=== PATIENT | male | born 1995 | race Caucasian/White ===

== ENCOUNTER 2018-01-30 13:48 | Emergency (ER) | payer OTHER ==
[2018-01-30] MEDS ORDERED: LIDOCAINE 1% MPF 5 ML VIAL ONE (16:10)
--- NOTE | 2018-01-30 16:32 | ER ---
Nurse's Notes [facility] Name: Sandra White Age: 22 yrs Sex: Male : 1995 Arrival Date: 01/30/2018 Time: 13:53 Bed 11 Private MD: Diagnosis: Laceration without foreign body of left thumb without damage to nail Presentation: 01/30 15:20 Presenting complaint: Patient states: cut left thumb with serrated kitchen knife. iw Transition of care: patient was not received from another setting of care. Onset of symptoms was January 30, 2018. Risk Assessment: Do you want to hurt yourself or someone else? Patient reports no desire to harm self or others. Initial Sepsis Screen: Does the patient meet any 2 criteria? No. Patient's initial sepsis screen is negative. Does the patient have a suspected source of infection? No. Patient's initial sepsis screen is negative. Care prior to arrival: None. 15:20 Method Of Arrival: Ambulatory iw 15:20 Acuity: TOOTIE 4 iw Historical: - Allergies: 15:35 Iodine; iw - Immunization history:: Last tetanus immunization: up to date. - Ebola Screening: : Patient negative for fever greater than or equal to 101.5 degrees Fahrenheit, and additional compatible Ebola Virus Disease symptoms Patient denies exposure to infectious person Patient denies travel to an Ebola-affected area in the 21 days before illness onset No symptoms or risks identified at this time. Vital Signs: 15:34 Pulse 63; Resp 16; Temp 98.2; Pulse Ox 98% on R/A; Weight 74.84 kg; Height 5 ft. 10 in. iw (177.80 cm); Pain 3/10; 15:34 Body Mass Index 23.67 (74.84 kg, 177.80 cm) iw ED Course: 13:53 Patient arrived in ED. rg4 14:52 Melina Cook, RN is Primary Nurse. iw 15:03 Jermain Mohan PA is PHCP. cp 15:03 Rafael Sinha MD is Attending Physician. cp 15:34 Triage completed. iw 16:42 Hand Left 2 View XRAY In Process Unspecified. EDMS Administered Medications: No medications were administered Outcome: 16:32 Discharge ordered by MD. cp 16:45 Patient left the ED. iw Signatures: Dispatcher [employer] EDMS Melina Cook, RN RN iw Jermain Mohan PA PA cp Garcia, Pretty rg4
--- NOTE | 2018-01-30 16:33 | EDPHYS ---
Physician Documentation [facility] Name: Sandra White Age: 22 yrs Sex: Male : 1995 Arrival Date: 01/30/2018 Time: 13:53 Bed 11 Private MD: ED Physician Rafael Sinha HPI: 01/30 15:45 This 22 yrs old Male presents to ER via Ambulatory with complaints of cp Laceration To Finger. 15:45 The patient or guardian reports a laceration, clean. cp 15:45 The complaints affect the distal phalanx of left thumb. Context: The problem was cp sustained at home, resulted from cutting potato . Onset: The symptoms/episode began/occurred just prior to arrival. Historical: - Allergies: 15:35 Iodine; iw - Immunization history:: Last tetanus immunization: up to date. - Ebola Screening: : Patient negative for fever greater than or equal to 101.5 degrees Fahrenheit, and additional compatible Ebola Virus Disease symptoms Patient denies exposure to infectious person Patient denies travel to an Ebola-affected area in the 21 days before illness onset No symptoms or risks identified at this time. ROS: 15:50 Constitutional: Negative for body aches, chills, fever, poor PO intake. cp 15:50 Eyes: Negative for injury, pain, redness, and discharge. cp 15:50 Cardiovascular: Negative for chest pain. 15:50 Respiratory: Negative for cough, wheezing. 15:50 Abdomen/GI: Negative for abdominal pain, vomiting, diarrhea, constipation. 15:50 Skin: Positive for laceration(s), of the distal phalanx of left thumb, Negative for avulsion. 15:50 Neuro: Negative for numbness. 15:50 All other systems are negative. Exam: 15:54 Constitutional: The patient appears in no acute distress, alert, awake, well developed, cp well nourished. 15:54 Head/Face: Normocephalic, atraumatic. cp 15:54 Eyes: Periorbital structures: appear normal, Conjunctiva: normal, no exudate, no injection, Lids and lashes: appear normal, bilaterally. 15:54 ENT: External ear(s): are unremarkable, Nose: is normal, Mouth: Lips: moist, Oral mucosa: moist. 15:54 Chest/axilla: Inspection: normal. 15:54 Cardiovascular: Rate: normal. 15:54 Respiratory: the patient does not display signs of respiratory distress, Respirations: normal, no use of accessory muscles, no retractions, no splinting, no tachypnea, labored breathing, is not present. 15:54 Abdomen/GI: Inspection: abdomen appears normal. 15:55 Skin: injury, laceration(s), the wound is approximately 2 cm(s), of the distal phalanx cp left thumb ulna side, that can be described as linear, with mild bleeding. 15:55 Musculoskeletal/extremity: ROM: full active range of motion, in the left thumb, cp Perfusion: the extremity is normally perfused throughout, Sensation intact. Tendon exam: specific tendon testing normal through active and passive range of motion Vital Signs: 15:34 Pulse 63; Resp 16; Temp 98.2; Pulse Ox 98% on R/A; Weight 74.84 kg; Height 5 ft. 10 in. iw (177.80 cm); Pain 3/10; 15:34 Body Mass Index 23.67 (74.84 kg, 177.80 cm) iw Laceration: 16:30 Wound Repair of 2cm ( 0.8in ) subcutaneous laceration to distal aspect left thumb. cp Linear shaped.. Distal neuro/vascular/tendon intact. Anesthesia: Wound infiltrated with 3 mls of Lido/Marcaine. Wound prep: Moderate cleansing by me, Wound irrigation by me. Skin closed with 4 4-0 Prolene using interrupted sutures and sterile technique. Dressed with Bacitracin, tube gauze. Patient tolerated well. MDM: 15:03 Patient medically screened. cp 15:45 Differential diagnosis: open fracture, tendon injury, simple laceration, nail injury. cp 16:30 Data reviewed: vital signs, nurses notes, radiologic studies, plain films. cp 16:30 Test interpretation: by ED physician or midlevel provider: plain radiologic studies. cp Counseling: I had a detailed discussion with the patient and/or guardian regarding: the historical points, exam findings, and any diagnostic results supporting the discharge/admit diagnosis, radiology results, to return to the emergency department if symptoms worsen or persist or if there are any questions or concerns that arise at home. Response to treatment: the patient's symptoms have markedly improved after treatment, and as a result, I will discharge patient. 01/30 15:36 Order name: Hand Left 2 View XRAY iw 01/30 15:37 Order name: Prolene, Sutures cp 01/30 15:37 Order name: Dressing - Wound cp 01/30 15:37 Order name: Gloves, Sterile cp 01/30 15:37 Order name: Setup Suture Tray cp 01/30 15:56 Order name: Wound Care: please clean and irrigate wound cp Administered Medications: No medications were administered Disposition: 17:41 Co-signature as Attending Physician, Rafael Sinha MD. ma2 Disposition: 01/30/18 16:32 Discharged to Home. Impression: Laceration without foreign body of left thumb without damage to nail. - Condition is Stable. - Discharge Instructions: Laceration Care, Adult. - Medication Reconciliation Form, Thank You Letter, Antibiotic Education, Prescription Opioid Use form. - Follow up: Private Physician; When: 7 - 10 days; Reason: Staple/Suture removal. - Problem is new. - Symptoms have improved. Signatures: Dispatcher [employer] EDNY Melina Cook RN RN iw Jermain Mohan PA PA cp Alzahri, Mohammad, MD MD ma2 Corrections: (The following items were deleted from the chart) 15:39 15:36 Hand Left 3 View+RAD.RAD.BRZ ordered. [facility] EDNY 16:45 16:32 01/30/2018 16:32 Discharged to Home. Impression: Laceration without foreign body iw of left thumb without damage to nail. Condition is Stable. Forms are Medication Reconciliation Form, Thank You Letter, Antibiotic Education, Prescription Opioid Use. Follow up: Private Physician; When: 7 - 10 days; Reason: Staple/Suture removal. Problem is new. Symptoms have improved. cp
--- NOTE | 2018-01-30 16:52 | RAD REPORT ---
EXAM DESCRIPTION: RAD - Hand Left 2 View - 01/30/2018 4:42 pm CLINICAL HISTORY: Left hand pain status post injury FINDINGS: No fracture or dislocation is seen. A radiopaque foreign body is not seen Limited two view series obtained
== END 2018-01-30 16:45 | disposition home or self-care (01) ==
LOC: ER 13:48
PROC: 0JQK0ZZ Repair Left Hand Subcutaneous Tissue and Fascia, Open Approach (ICD-10-PCS; principal; 2018-01-30)
DX: S61.012A Laceration without foreign body of left thumb without damage to nail, initial encounter (principal); W26.0XXA Contact with knife, initial encounter; Y93.G3 Activity, cooking and baking; Y92.009 Unspecified place in unspecified non-institutional (private) residence as the place of occurrence of the external cause; Z91.048 Other nonmedicinal substance allergy status
CPT/HCPCS: 99282